=== PATIENT | female | born 2000 | race Caucasian/White ===

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

== ENCOUNTER 2018-03-06 11:12 | Emergency (ER) | payer OTHER ==
[~2018-03-06] VITALS: Ht 162.6 cm; Wt 84.1 kg
[2018-03-06 12:33] LABS: URINE BILIRUBIN - DIPSTICK NEGATIVE (NEGATIVE); URINE BLOOD DIPSTICK NEGATIVE (NEGATIVE); URINE COLOR YELLOW; URINE GLUCOSE - DIPSTICK NEGATIVE (NEGATIVE); URINE KETONE NEGATIVE (NEGATIVE); URINE LEUK ESTERASE NEGATIVE (NEGATIVE); URINE NITRITE - DIPSTICK NEGATIVE (Negative); URINE PH 6.5 (4.5-8.0); URINE PROTEIN - DIPSTICK NEGATIVE (NEG-TRACE)
[2018-03-06 12:45] LABS: URINE CLARITY CLEAR
[2018-03-06 13:00] VITALS: BP 136/74
== END 2018-03-06 13:15 | disposition home or self-care (01) ==
LOC: ED 11:12
PROVIDERS: Emergency Medicine
DX: O26.893 Other specified pregnancy related conditions, third trimester (principal); Z3A.35 35 weeks gestation of pregnancy

== ENCOUNTER 2018-08-10 15:29 | Emergency (ER) | payer OTHER ==
[~2018-08-10] VITALS: Ht 162.6 cm; Wt 72.0 kg
[2018-08-10 16:23] LABS: URINE BILIRUBIN - DIPSTICK NEGATIVE (NEGATIVE); URINE BLOOD DIPSTICK NEGATIVE (NEGATIVE); URINE COLOR YELLOW; URINE GLUCOSE - DIPSTICK NEGATIVE (NEGATIVE); URINE KETONE NEGATIVE (NEGATIVE); URINE LEUK ESTERASE NEGATIVE (NEGATIVE); URINE NITRITE - DIPSTICK NEGATIVE (Negative); URINE PROTEIN - DIPSTICK NEGATIVE (NEG-TRACE); URINE UROBILINOGEN - DIPSTICK 0.2 E.U./dL (0.2)
[2018-08-10 17:19] VITALS: BP 109/70
== END 2018-08-10 17:19 | disposition home or self-care (01) ==
LOC: ED 15:29
DX: R10.2 Pelvic and perineal pain (principal)

== ENCOUNTER 2020-02-16 12:08 | Emergency (ER) | payer OTHER ==
[~2020-02-16] VITALS: Ht 162.6 cm; Wt 80.0 kg
[2020-02-16] MEDS ORDERED: VOLTAREN1%GEL TOP (14:13)
[2020-02-16] MEDS ORDERED: CYCLOBENZAPR5 MG PO (14:14)
[2020-02-16 14:20] VITALS: BP 118/56
== END 2020-02-16 14:23 | disposition home or self-care (01) ==
LOC: ED 12:08
DX: M54.6 Pain in thoracic spine (principal)

== ENCOUNTER 2020-06-07 17:23 | Emergency (ER) | payer OTHER ==
[~2020-06-07] VITALS: Ht 162.6 cm; Wt 80.0 kg
[~2020-06-07 17:23] MED LIST changes: +CYCLOBENZAPR5 MG PO; +VOLTAREN1%GEL TOP
[2020-06-07 18:16] LABS: HEMATOCRIT 37.7 % (37.0-47.0); HEMOGLOBIN 11.9 g/dl (12.0-16.0); IMMATURE GRANULOCYTES 0.3 % (0.0-5.0); MEAN CELL VOLUME 91.1 fL CALC (80.0-100.0); MEAN CORPUSCULAR HGB 28.7 pG CALC (26.0-32.0); MEAN CORPUSCULAR HGB CONC 31.6 g/dL CAL (32.0-36.0); NEUT# 6.24 thou/uL (2.00-7.15); RED BLOOD COUNT 4.14 mill/uL (4.20-5.60); RED CELL DISTRI WIDTH 12.2 % (11.5-15.5)
[2020-06-07 18:18] LABS: URINE BILIRUBIN - DIPSTICK NEGATIVE (NEGATIVE); URINE BLOOD DIPSTICK NEGATIVE (NEGATIVE); URINE COLOR YELLOW; URINE GLUCOSE - DIPSTICK NEGATIVE (NEGATIVE); URINE KETONE NEGATIVE (NEGATIVE); URINE LEUK ESTERASE NEGATIVE (NEGATIVE); URINE NITRITE - DIPSTICK NEGATIVE (Negative); URINE PROTEIN - DIPSTICK NEGATIVE (NEG-TRACE); URINE UROBILINOGEN - DIPSTICK 0.2 E.U./dL (0.2)
[2020-06-07 18:46] LABS: ALBUMIN 4.2 g/dL (3.2-5.0); ALKALINE PHOSPHATASE 97 u/l (38-126); ANION GAP 10 (6-22 (CALC)); BILIRUBIN, TOTAL 0.3 mg/dL (0.0-1.4); BUN 9 mg/dL (7-17); BUN/CREATININE RATIO 15 (12-20 (CALC)); CARBON DIOXIDE 29 mmol/l (22-30); CHLORIDE 103 mmol/l (95-108); CREATININE 0.6 mg/dL (0.5-1.0); GFR > 60 ML/MIN (>=60 (CALC)); GFR FOR AFR.AMER. > 60 ML/MIN (>=60 (CALC)); LIPASE 102 u/l (23-300); POTASSIUM 3.9 mmol/l (3.5-5.1); SGOT/AST 20 u/l (14-36); SODIUM 139 mmol/l (137-146); TOTAL PROTEIN 7.4 g/dL (6.3-8.2)
[2020-06-07 20:32] VITALS: BP 105/60
== END 2020-06-07 20:43 | disposition home or self-care (01) ==
LOC: ED 17:23
PROVIDERS: Family Medicine
DX: R10.30 Lower abdominal pain, unspecified (principal); F32.9 Major depressive disorder, single episode, unspecified; F41.9 Anxiety disorder, unspecified
CPT/HCPCS: Q9967

== ENCOUNTER 2023-05-28 19:55 | Emergency (ER) | payer SELFPAY ==
[~2023-05-28] VITALS: Ht 162.6 cm; Wt 86.4 kg
[~2023-05-28 19:55] MED LIST changes: +NAPROXEN500 MG PO
[2023-05-28 20:15] VITALS: BP 126/89
[2023-05-28] MEDS ORDERED: BUPROPION HCL150 MG PO (20:23)
[2023-05-28] MEDS ORDERED: PENICILLN VK500 MG PO (20:26)
[2023-05-28] MEDS ORDERED: EC-NAPROXEN500 MG PO (20:26)
== END 2023-05-28 21:41 | disposition home or self-care (01) | DRG 159 ==
LOC: ED 19:55
DX: S02.5XXA Fracture of tooth (traumatic), initial encounter for closed fracture (principal); F32.A Depression, unspecified; F41.9 Anxiety disorder, unspecified; K02.9 Dental caries, unspecified; X58.XXXA Exposure to other specified factors, initial encounter

== ENCOUNTER 2024-08-05 09:19 | Emergency (ER) | payer OTHER ==
[~2024-08-05] VITALS: Ht 162.6 cm; Wt 97.0 kg
[~2024-08-05 09:19] MED LIST changes: +BENADRYL25 M1 PO; +BUPROPION HCL150 MG PO; +EC-NAPROXEN500 MG PO; +PENICILLN VK500 MG PO; +PREDNISONE50 MG PO; +VIBRAMYCIN100 M2 PO; +[UNRECOGNIZED DRUG - OTHER] MT
[2024-08-05 09:32] VITALS: BP 108/74
[2024-08-05 10:00] VITALS: BP 106/72
[2024-08-05] MEDS ORDERED: AMOX/K CLAV875 M1 PO (10:23)
[2024-08-05 10:28] VITALS: BP 106/72
== END 2024-08-05 10:28 | disposition home or self-care (01) ==
LOC: ED 09:19
DX: J32.9 Chronic sinusitis, unspecified (principal); Z20.822 Contact with and (suspected) exposure to COVID-19